=== PATIENT | female | born 1985 | race Caucasian/White ===

== ENCOUNTER 2022-06-24 16:44 | Emergency (ER) | payer OTHER, BC ==
[~2022-06-24] VITALS: Ht 162.6 cm; Wt 99.8 kg
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
[2022-06-24] MEDS ORDERED: TETANUS,DIPTH,PERTUSS P/F (BOOSTRIX) 0.5 ML VIAL IM ONE (17:15)
[2022-06-24] MEDS ORDERED: ACETAMINOPHEN 500 MG TAB (TYLENOL) PO ONE (17:15)
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
[2022-06-24] MEDS ORDERED: ACHD5005 PO ×3 (17:39→17:45)
[2022-06-24 17:44] VITALS: BP 143/90
== END 2022-06-24 17:44 | disposition home or self-care (01) ==
LOC: EDUNIT# 16:44 → ER 16:51
DX: S60.312A Abrasion of left thumb, initial encounter (principal); M79.662 Pain in left lower leg; Z23 Encounter for immunization; Z28.310 Unvaccinated for COVID-19; V49.9XXA Car occupant (driver) (passenger) injured in unspecified traffic accident, initial encounter; Y92.410 Unspecified street and highway as the place of occurrence of the external cause
CPT/HCPCS: 73130; 73590; 90715